=== PATIENT | female | born 1960 | race Caucasian/White ===

== ENCOUNTER 2017-07-26 10:52 | Emergency (ER) | payer OTHER ==
--- NOTE | 2017-07-26 11:09 | EDM.PDOC ---
ED HPI GENERAL MEDICAL PROBLEM - General Chief Complaint: Upper Extremity Injury/Pain Stated Complaint: PT LT WRIST HURTS Time Seen by Provider: 07/26/17 11:08 Source of Information: Reports: Patient History Limitations: Reports: No Limitations - History of Present Illness INITIAL COMMENTS - FREE TEXT/NARRATIVE: patient left prior to being evaluated by me. - Related Data Allergies Allergy/AdvReac Type Severity Reaction Status Date / Time meperidine HCl [From Demerol] Allergy Nausea and Verified 03/25/15 12:28 Vomiting Penicillins Allergy Hives Verified 03/25/15 12:28 Some adhesives Allergy Rash Uncoded 03/25/15 12:29 Home Meds: Home Meds Dextroamphetamine [Dexedrine] 30 mg PO DAILY 05/14/14 [History] buPROPion [Wellbutrin XL] 300 mg PO BEDTIME 05/14/14 [History] Estradiol [Vivelle-Dot] 1 patch 03/26/15 [History] Acetaminophen/oxyCODONE [Percocet 325-5 MG] 1 tab PO Q4H PRN #30 tablet [Rx] Past Medical History Other Respiratory History: Former smoker Other Genitourinary History: REcent treatment for UTI Other Musculoskeletal History: hx: Sciatic Pain (bilaterally at times) Other Neuro History: Low back pain, MS - Past Surgical History Other Female Surgeries/Procedures: REcent Pelvic Pain, Uterine Fibroid Other Musculoskeletal Surgeries/Procedures:: HX: Dislocated Right Shoulder, LOW back fusion L-5 S-1 anterior/posteriod procedure with hardware Social & Family History - Tobacco Use Smoking Status *Q: Former Smoker Second Hand Smoke Exposure: No - Alcohol Use Days Per Week of Alcohol Use: 0 - Recreational Drug Use Recreational Drug Use: No Drug Use in Last 12 Months: No Review of Systems - Review of Systems Review Of Systems: See Below (she was not evaluated) ED EXAM, GENERAL - Physical Exam Exam: See Below (patient was not evaluated) Departure - Departure Time of Disposition: 11:20 Disposition: Left Without Being Seen 07 Clinical Impression: Encounter for medical screening examination - Discharge Information Referrals: PCP,None [Primary Care Provider] - Forms: ED Department Discharge
== END 2017-07-26 11:20 | disposition left against medical advice (07) ==
LOC: MW.ED 10:52
DX: Z53.21 Procedure and treatment not carried out due to patient leaving prior to being seen by health care provider (principal)